=== PATIENT | female | born 1950 | race Caucasian/White ===

== ENCOUNTER → 2016-05-15 | Outpatient (CLI) | payer OTHER ==
[2016-05-15 12:39] LABS: CH 28.6; CHCM 32.5; HCT 42.5 % (34.0-46.0); HDW 2.33; HGB 13.6 gm/dL (11.4-16.0); MCH 28.3 pg (25.0-35.0); MCHC 32.1 g/dL (31.0-37.0); MCV 88.3 fL (80.0-100.0); Mean Platelet Volume 7.2; RBC 4.81 m/uL (3.80-5.40); RDW 14.1 % (11.5-15.5); WBC 11.3 k/uL (3.8-10.6)
[2016-05-15 13:00] LABS: Anion Gap 12 mmol/L; Carbon Dioxide 25 mmol/L (22-30); Chloride 99 mmol/L (98-107); Potassium 4.3 mmol/L (3.5-5.1); Sodium 136 mmol/L (137-145)
[2016-05-15 13:01] LABS: Blood Urea Nitrogen 14 mg/dL (7-17); Non-African American GFR(MDRD) >60 (>60 ml/min/1.73 sqM)
== END | disposition home or self-care (01) ==
LOC: LABPAT 12:23
PROVIDERS: ATTEND Internal Medicine Interventional Cardiology
DX: Z01.812 Encounter for preprocedural laboratory examination (principal); I10 Essential (primary) hypertension; R06.02 Shortness of breath
CPT/HCPCS: 80051; 82565; 84520; 85027

== ENCOUNTER 2016-05-25 07:54 | Day surgery (SDC) | payer OTHER ==
[2016-05-24 09:50] VITALS: BMI 39.2
[~2016-05-25 07:54] MED LIST: ALPRAZolam 0.25 MG TAB PO PRN; ALPRAZolam 0.5 MG TAB PO PRN; ASPIRIN 325 MG TAB PO STA; ATORVASTATIN 80 MG TAB PO STA; NITROGLYCERIN SL TABS 0.4 MG TAB SUBLINGUAL PRN; SODIUM CHLORIDE 0.9% 1,000 ML in EMPTY BAG 1 BAG IV ONE
[2016-05-25 08:12] VITALS: TEMP 98
[2016-05-25 08:24] LABS: Glucose,Whole Blood 170 mg/dL (75-99)
[2016-05-25] MEDS ORDERED: SODIUM CHLORIDE 0.9% (PF) 10 ML VIAL ONE (08:29)
[2016-05-25] MEDS ORDERED: VERAPAMIL 2.5 MG/ML 2 ML AMP ONE (08:29)
[2016-05-25] MEDS ORDERED: MIDAZOLAM 2 MG/2 ML VIAL ONE (08:29)
[2016-05-25] MEDS ORDERED: LIDOCAINE 2% INJ 20 MG/ML (20 ML MDV) ONE (08:29)
[2016-05-25] MEDS ORDERED: HEPARIN SODIUM 1,000 UNIT/ML VIAL ONE (08:29)
[2016-05-25] MEDS ORDERED: diphenhydrAMINE 50 MG/ML 1 ML VIAL ONE (08:41)
[2016-05-25] MEDS ORDERED: diphenhydrAMINE 50 MG/ML 1 ML VIAL IVP ONE (08:52)
[2016-05-25] MEDS ORDERED: MIDAZOLAM 2 MG/2 ML VIAL IVP ONE (08:52)
[2016-05-25] MEDS ORDERED: LIDOCAINE 2% INJ 20 MG/ML SQ ONE ×2 (08:54)
[2016-05-25] MEDS ORDERED: HEPARIN SODIUM 1,000 UNIT/ML VIAL IV ONE (08:57)
[2016-05-25] MEDS: VERAPAMIL SYRINGE (5 MG/10 ML) INTRAARTER ONE ×2 (08:58→09:07)
[2016-05-25] MEDS ORDERED: IOHEXOL 300 MG/ML 100 ML BOTTLE IV ONE (09:08)
[2016-05-25] MEDS ORDERED: RX INFO: IV CONTRAST WAS GIVEN 1 EACH MISC MISCELLANE PRN (09:17)
[2016-05-25] MEDS ORDERED: SODIUM CHLORIDE 0.9% 1,000 ML IV SCH (09:30)
--- NOTE | 2016-05-25 10:08 | CC ---
DATE OF SERVICE: 05/25/2016 PERFORMING PHYSICIAN: Demian Edge MD, furnace filler. PROCEDURE PERFORMED: 1. Selective right and left coronary angiogram. 2. Left heart catheterization. INDICATION: This is a pleasant 65-year-old female patient who was experiencing chest discomfort and underwent myocardial perfusion imaging stress test which showed anterior ischemia. She was brought today to undergo a heart catheterization to rule out any severe underlying coronary artery disease. Please note that the patient has diabetes, hypertension, dyslipidemia and she is also obese. APPROACH: Right radial artery. COMPLICATIONS: None. LEVEL OF SEDATION: Moderate with a length of sedation of 30 minutes. PROCEDURE DESCRIPTION: After obtaining an informed consent, the patient was brought to the cardiac boat laborer. Right radial artery was cannulated using micropuncture technique. The micropuncture wire passed easily, then I placed 6-[place] sheath in the right radial artery. Subsequently, I gave the patient 2 mg of verapamil IA and 3000 units of heparin IV. Subsequently, I did selective right and left coronary angiogram using JR4 and JL3.5 catheters. Then I did left heart catheterization using 5-[place] pigtail catheter. The procedure was completed without any complication. SELECTIVE CORONARY ANGIOGRAM: 1. The right coronary artery is a large-caliber vessel and it is a dominant vessel. The proximal RCA is angiographically normal. The mid RCA is angiographically normal as well. The RCA distally is angiographically normal and bifurcates into PDA and PLV branches; both are angiographically normal. 2. The left main is angiographically normal and bifurcates into the left circumflex and left anterior descending artery. 3. Left circumflex is a large-caliber vessel and it is a nondominant vessel. The proximal left circumflex is angiographically normal. The mid left circumflex is normal and gives rises into a large first obtuse marginal branch, which appeared to be angiographically normal then the rest of the left circumflex continues as a small-caliber vessel in the AV groove. 4. Left anterior descending artery. The proximal LAD is angiographically normally. The mid LAD is normal and gives rises into a large diagonal branch, which works as ( ) almost dual LAD system. The mid LAD after the diagonal and the distal LAD are angiographically normal. HEMODYNAMICS: The left ventricular end-diastolic pressure was 22 mmHg and no gradient was identified across the aortic valve. CONCLUSION: 1. Normal coronary angiogram. 2. Dominant right coronary system. 3. Dual left anterior descending artery system. 4. Elevated left ventricular end-diastolic pressure. POSTPROCEDURE MANAGEMENT: 1. Medical treatment. 2. Follow up with the patient.
[2016-05-25 10:10] VITALS: RESP 16
--- NOTE | 2016-05-25 10:10 | LTR ---
May 25, 2016 JOHAN DOYLE MD RE: Maryana Corey Dear Pat: Ms. Maryana Corey underwent a heart catheterization which showed normal coronary angiogram. Thank you for allowing me to participate in her care and please do not hesitate to call if you have any questions or concerns. Sincerely, GRETTA AUSTIN MD
[2016-05-25 12:04] VITALS: BP 137/61; PULSE 78
== END 2016-05-25 14:20 | disposition home or self-care (01) ==
LOC: CATHCVL 07:54
PROVIDERS: ATTEND Internal Medicine Interventional Cardiology
DX: R94.39 Abnormal result of other cardiovascular function study (principal); I20.0 Unstable angina; I73.9 Peripheral vascular disease, unspecified; I10 Essential (primary) hypertension; E78.5 Hyperlipidemia, unspecified; E66.9 Obesity, unspecified; Z68.39 Body mass index [BMI] 39.0-39.9, adult; E11.9 Type 2 diabetes mellitus without complications; Z79.84 Long term (current) use of oral hypoglycemic drugs; Z79.1 Long term (current) use of non-steroidal anti-inflammatories (NSAID); Z79.82 Long term (current) use of aspirin; Z79.4 Long term (current) use of insulin; Z79.891 Long term (current) use of opiate analgesic; Z79.899 Other long term (current) drug therapy; Z82.49 Family history of ischemic heart disease and other diseases of the circulatory system
CPT/HCPCS: 93458; 99152; C1769; C1894; J2001; J2250; J1200; J1644; Q9967

== ENCOUNTER → 2017-04-09 | Outpatient (CLI) | payer MEDICARE ==
--- NOTE | 2017-04-09 15:59 | US ---
EXAMINATION TYPE: US thyroid st tissue head/neck DATE OF EXAM: 04/09/2017 COMPARISON: NONE CLINICAL HISTORY: E03.9 Hypothyroidism, unspecified. GLAND SIZE: Right Lobe: 4.4 x 1.5 x 1.6 cm Overall Parenchyma: heterogenous Left Lobe: 3.7 x 1.3 x 1.4 cm Overall Parenchyma: heterogeneous Isthmus Thickness: 0.3 cm NODULES RIGHT: # of nodules measured on right: 2 1. 0.5 X 0.5 x 0.5 cm anechoic cystic nodule at the mid pole with well-defined margins. This nodul e is as wide as it is tall and shows no intranodular vascularity. No prior 2. 0.7 X 0.4 x 0.5 cm hypoechoic solid nodule at the mid pole with well-defined margins. This nodule is wider than tall and shows no intranodular vascularity. No prior LEFT: # of nodules measured on left: 0 ISTHMUS: # of nodules measured in the isthmus: 0 Bilateral neck scanned, no evidence of lymphadenopathy. IMPRESSION: Nonspecific thyroid heterogeneity and nodularity.
== END | disposition home or self-care (01) ==
LOC: RADUSWWP 15:31
PROVIDERS: ATTEND Family Medicine
DX: E04.1 Nontoxic single thyroid nodule (principal)
CPT/HCPCS: 76536

== ENCOUNTER 2018-07-08 06:02 | Day surgery (SDC) | payer MEDICARE ==
[2018-07-02 13:19] VITALS: BMI 36.0
[~2018-07-08 06:02] MED LIST changes: -ALPRAZolam 0.25 MG TAB PO PRN; -ALPRAZolam 0.5 MG TAB PO PRN; -ASPIRIN 325 MG TAB PO STA; -ATORVASTATIN 80 MG TAB PO STA; +LACTATED RINGERS 1,000 ML IV SCH; +MORPHINE SULFATE 2 MG/ML SYRINGE IV PRN; -NITROGLYCERIN SL TABS 0.4 MG TAB SUBLINGUAL PRN; -SODIUM CHLORIDE 0.9% 1,000 ML in EMPTY BAG 1 BAG IV ONE; +TOBRA-DEXAMET 0.3-0.1% OPHTH OINT 3.5 GM TUBE OPHTHALMIC NR
[2018-07-08] MEDS: PHENYLEPHRINE 10% OPHTH DROPS 5 ML BTL OP ONE ×3 (06:22→06:43)
[2018-07-08 06:25] VITALS: TEMP 96.6
[2018-07-08] MEDS: CYCLOPENTOLATE 1% OPHTH SOLN 2 ML BTL OP ONE ×3 (06:25→06:46)
[2018-07-08] MEDS: KETOROLAC 0.5% OPHTH DROPS 5 ML BTL OP ONE ×3 (06:29→06:50)
[2018-07-08 06:47] LABS: Glucose,Whole Blood 120 mg/dL (75-99)
[2018-07-08] MEDS ORDERED: LIDOCAINE 1% 20 ML VIAL (10MG/ML) FOR IV START INTRADERMA ONE (06:48)
[2018-07-08] MEDS ORDERED: MIDAZOLAM 2 MG/2 ML VIAL ONE (07:35)
[2018-07-08] MEDS ORDERED: PROPOFOL 10 MG/ML 20 ML VIAL IV ONE (07:35)
[2018-07-08] MEDS ORDERED: BALANCED SALT IRRIG SOLN COMB2 15 ML IRRIG.SOLN IRRIGATION ONE (07:51)
[2018-07-08] MEDS ORDERED: EPINEPHrine (PF) 0.5 ML in BALANCED SALT IRRIG SOLN COMB2 500 ML IRRIGATION ONE (07:51)
[2018-07-08] MEDS ORDERED: HYALURONATE SODIUM INTRAOCULAR 1 EACH SYRINGE (10MG/ML) INTRAOCULA ONE (07:56)
[2018-07-08 08:10] VITALS: RESP 18
[2018-07-08 08:14] LABS: Glucose,Whole Blood 133 mg/dL (75-99)
[2018-07-08 08:20] VITALS: PULSE 68
[2018-07-08 08:31] VITALS: BP 109/55
--- NOTE | 2018-07-08 09:22 | P.OP ---
Date of Procedure: 07/08/18 Procedure(s) Performed: PREOPERATIVE DIAGNOSIS: Cataract, left eye. POSTOPERATIVE DIAGNOSIS: Cataract, left eye. OPERATION: Phacoemulsification of cataract, intraocular lens placement, left eye. DESCRIPTION OF PROCEDURE: The patient was taken to the operating room. Intravenous Propofol was given so as to bring about sedation. The following mixture was given for local anesthesia: 5 mL of 2% lidocaine, 5 mL of 0.75% Marcaine, and 1 mL of Wydase. Approximately 4 mL was injected in the retrobulbar space of the surgical eye. Additional 1 mL was then directed to the temporal area of the surgical eye. This was performed to allow adequate neurological block of the facial muscles. The patient was revived. The patient was prepped and draped in the usual sterile manner for the operative eye. A lid speculum was put into position. The conjunctiva was resected back from the limbus in the 12 o'clock position. Bleeding was controlled with electrocautery. A #69 blade was then used and a half-thickness scleral incision approximately 1-mm posterior to the limbus was made on bare sclera. This was shelved in the clear cornea using a crescent knife. Next a 15-degree blade was used to make a stab incision at the 3 o'clock position at the corneolimbal interface. A keratome blade was then used and the superior wound was extended into the anterior chamber. Viscoelastic was injected into the anterior chamber to maintain its form. A cystotome was used and a continuous anterior capsulot mario was made. Hydrodissection of the lens cortex using a blunt cannula and BSS was performed. A phaco probe was then introduced and a groove extending from 12 to 6 o'clock in the lens was created. A Jaiden wand was used through the stab incision and used to perform a divide and conquer dismantling of the cataract. An irrigation aspiration probe was utilized and any residual cortex was removed from the eye. Again, viscoelastic was injected into the anterior chamber. An Aly posterior chamber lens implant was placed in a delivery cartridge and injected into the anterior chamber. A Sinskey hook was utilized to spin the lens into position within the capsular bag. The irrigation and aspiration probe was again introduced and any residual viscoelastic was removed from the eye. BSS was injected via blunt canula into the limbal stab incision and the anterior chamber was re-inflated. The conjunctiva was reapproximated using electrocautery. One drop of 0.25% Timoptic was placed over the corneal along with an antibiotic ophthalmic ointment. Two sterile patches and a Duncan eye shield were taped into position. The patient was transported to the recovery room in stable condition. Pathology: none sent Condition: stable Disposition: same day
[2018-07-08] MEDS ORDERED: TIMOLOL 0.5% OPHTH DROPS 5 ML BTL OP ONE (23:00)
[2018-07-08] MEDS ORDERED: BUPIVACAINE (PF) 0.75% 5 ML, HYALURONIDASE, HUMAN RECOMB 150 UNIT, LIDOCAINE 2% (PF) 10... MISCELLANE ONE ×3 (23:00)
== END 2018-07-08 08:48 | disposition home or self-care (01) ==
LOC: OR 06:02
PROVIDERS: ATTEND Ophthalmology
DX: E11.36 Type 2 diabetes mellitus with diabetic cataract (principal); I10 Essential (primary) hypertension; H40.059 Ocular hypertension, unspecified eye; K21.9 Gastro-esophageal reflux disease without esophagitis; J45.909 Unspecified asthma, uncomplicated; E07.9 Disorder of thyroid, unspecified; Z79.84 Long term (current) use of oral hypoglycemic drugs; Z79.890 Hormone replacement therapy; Z79.891 Long term (current) use of opiate analgesic; Z79.899 Other long term (current) drug therapy
CPT/HCPCS: 66984; V2632; J2250; J3470; J2001; J0171; J2704

== ENCOUNTER 2018-08-12 07:00 | Day surgery (SDC) | payer MEDICARE ==
[2018-08-07 11:11] VITALS: BMI 37.3
[2018-08-12] MEDS: CYCLOPENTOLATE 1% OPHTH SOLN 2 ML BTL OP ONE ×2 (06:46→07:05)
[2018-08-12] MEDS: KETOROLAC 0.5% OPHTH DROPS 5 ML BTL OP ONE ×3 (06:49→07:08)
[2018-08-12 06:52] VITALS: RESP 16; TEMP 97.2
[2018-08-12] MEDS: PHENYLEPHRINE 10% OPHTH DROPS 5 ML BTL OP ONE ×3 (06:52→07:11)
[~2018-08-12 07:00] MED LIST changes: +BUPIVACAINE (PF) 0.75% 5 ML, HYALURONIDASE, HUMAN RECOMB 150 UNIT, LIDOCAINE 2% (PF) 10... MISCELLANE ONE; +LIDOCAINE 1% 20 ML VIAL (10MG/ML) FOR IV START INTRADERMA PRN; -MORPHINE SULFATE 2 MG/ML SYRINGE IV PRN; -TOBRA-DEXAMET 0.3-0.1% OPHTH OINT 3.5 GM TUBE OPHTHALMIC NR; +TOBRA-DEXAMET 0.3-0.1% OPHTH OINT 3.5 GM TUBE OPHTHALMIC ONE
[2018-08-12] MEDS ORDERED: PROPOFOL 10 MG/ML 20 ML VIAL IV ONE (07:30)
[2018-08-12] MEDS ORDERED: BALANCED SALT IRRIG SOLN COMB2 15 ML IRRIG.SOLN INTRAOCULA ONE (07:33)
[2018-08-12] MEDS ORDERED: HYALURONATE SODIUM INTRAOCULAR 1 EACH SYRINGE (10MG/ML) INTRAOCULA ONE (07:34)
[2018-08-12] MEDS ORDERED: EPINEPHrine (PF) 1 MG/ML AMP MISCELLANE ONE (07:34)
[2018-08-12] MEDS ORDERED: EPINEPHrine (PF) 0.5 ML in BALANCED SALT IRRIG SOLN COMB2 500 ML IRRIGATION ONE (07:53)
[2018-08-12 08:28] VITALS: BP 121/75; PULSE 68
--- NOTE | 2018-08-12 08:41 | P.OP ---
Date of Procedure: 08/12/18 Procedure(s) Performed: PREOPERATIVE DIAGNOSIS: Cataract, right eye. POSTOPERATIVE DIAGNOSIS: Cataract, right eye. OPERATION: Phacoemulsification of cataract, intraocular lens placement, right eye. DESCRIPTION OF PROCEDURE: The patient was taken to the operating room. Intravenous Propofol was given so as to bring about sedation. The following mixture was given for local anesthesia: 5 mL of 2% lidocaine, 5 mL of 0.75% Marcaine, and 1 mL of Wydase. Approximately 4 mL was injected in the retrobu lbar space of the surgical eye. Additional 1 mL was then directed to the temporal area of the surgical eye. This was performed to allow adequate neurological block of the facial muscles. The patient was revived. The patient was prepped and draped in the usual sterile manner for the operative eye. A lid speculum was put into position. The conjunctiva was resected back from the limbus in the 12 o'clock position. Bleeding was controlled with electrocautery. A #69 blade was then used and a half-thickness scleral incision approximately 1-mm posterior to the limbus was made on bare sclera. This was shelved in the clear cornea using a crescent knife. Next a 15-degree blade was used to make a stab incision at the 3 o'clock position at the corneolimbal interface. A keratome blade was then used and the superior wound was extended into the anterior chamber. Viscoelastic was injected into the anterior chamber to maintain its form. A cystotome was used and a continuous anterior capsu lotomy was made. Hydrodissection of the lens cortex using a blunt cannula and BSS was performed. A phaco probe was then introduced and a groove extending from 12 to 6 o'clock in the lens was created. A Jaiden wand was used through the stab incision and used to perform a divide and conquer dismantling of the cataract. An irrigation aspiration probe was utilized and any residual cortex was removed from the eye. Again, viscoelastic was injected into the anterior chamber. An Aly posterior chamber lens implant was placed in a delivery cartridge and injected into the anterior chamber. A Sinskey hook was utilized to spin the lens into position within the capsular bag. The irrigation and aspiration probe was again introduced and any residual viscoelastic was removed from the eye. BSS was injected via blunt canula into the limbal stab incision and the anterior chamber was re-inflated. The conjunctiva was reapproximated using electrocautery. One drop of 0.25% Timoptic was placed over the corneal along with an antibiotic ophthalmic ointment. Two sterile patches and a Duncan eye shield were taped into position. The patient was transported to the recovery room in stable condition. Pathology: none sent Condition: stable Disposition: same day
[2018-08-12] MEDS ORDERED: GENTAMICIN/PREDNISOL AC OPHTH OINT 3.5GM OPHTHALMIC ONE (23:00)
[2018-08-12] MEDS ORDERED: TIMOLOL 0.5% OPHTH DROPS 5 ML BTL OP ONE (23:00)
[2018-08-13 09:41] LABS: Glucose,Whole Blood 120 mg/dL (75-99)
== END 2018-08-12 08:54 | disposition home or self-care (01) ==
LOC: OR 07:00
PROVIDERS: ATTEND Ophthalmology
DX: H25.13 Age-related nuclear cataract, bilateral (principal); E11.36 Type 2 diabetes mellitus with diabetic cataract; J45.909 Unspecified asthma, uncomplicated; K21.9 Gastro-esophageal reflux disease without esophagitis; H40.059 Ocular hypertension, unspecified eye; I10 Essential (primary) hypertension; E07.9 Disorder of thyroid, unspecified; Z79.84 Long term (current) use of oral hypoglycemic drugs; Z79.82 Long term (current) use of aspirin; Z79.890 Hormone replacement therapy; Z79.899 Other long term (current) drug therapy; Z79.891 Long term (current) use of opiate analgesic; Z88.2 Allergy status to sulfonamides
CPT/HCPCS: 66984; V2632; J3470; J2001; J0171; J2704

== ENCOUNTER → 2020-01-01 | Outpatient (CLI) | payer MEDICARE | END | disposition home or self-care (01) | LOC: LABPAT 14:18 | PROVIDERS: ATTEND Orthopaedic Surgery | DX: Z01.818 Encounter for other preprocedural examination (principal); M17.12 Unilateral primary osteoarthritis, left knee | CPT/HCPCS: 87070 ==

== ENCOUNTER 2020-01-25 10:37 | Inpatient (IN) | payer MEDICARE ==
[2020-01-22 11:11] VITALS: BMI 36.1
--- NOTE | 2020-01-24 10:55 | HP ---
HISTORY AND PHYSICAL REASON FOR ADMISSION: Surgery 01/25/2020 HISTORY OF PRESENT ILLNESS: Maryana Corey is a 69-year-old patient seen with progressive left knee pain. Options for treatment were discussed with her. She elected to proceed with total knee arthroplasty. Consent regarding the procedure was obtained. Medical clearance was provided by Dr. Cuba. PAST MEDICAL HISTORY: Hypertension, hyperlipidemia, hypothyroidism, hyo-hfubhyb-znviaxlmh diabetes. PAST SURGICAL HISTORY: Cataract surgery, hysterectomy. DAILY MEDICATIONS: Actos, aspirin, atorvastatin, enalapril, ibuprofen, levothyroxine, metformin, Fanshawe, Trulicity. ALLERGIES: SULFA. SOCIAL HISTORY: She denies tobacco use. PHYSICAL EXAMINATION: Evaluation of the left knee: Range of motion -2/3-120. Mild effusion. Tenderness medial joint line. Crepitus medial and patellofemoral compartment with range of motion. Pain with patellofemoral compression. Ligaments stable. Hip rotation without pain. Distal neurovascular exam intact left knee. RADIOGRAPHS: Left knee radiographs reveal severe osteoarthritic changes. IMPRESSION: 1. Left knee osteoarthritis. 2. Hypertension. 3. Hyperlipidemia. 4. Hypothyroidism. 5. Iao-cxmazib-ycrhujezd diabetes. PLAN: Left total knee arthroplasty. Surgery 01/24/2026 MMODL / IJN: [id number] /
[~2020-01-25 10:37] MED LIST changes: +ACETAMINOPHEN TAB 500 MG TAB PO ONE; -BUPIVACAINE (PF) 0.75% 5 ML, HYALURONIDASE, HUMAN RECOMB 150 UNIT, LIDOCAINE 2% (PF) 10... MISCELLANE ONE; +CLINDAMYCIN 900 MG in DEXTROSE 5% IN WATER 50 ML IVPB ONE; +HYDROmorphone 0.5 MG/0.5 ML SYRINGE IVP PRN; -LACTATED RINGERS 1,000 ML IV SCH; +LIDOCAINE 1% (10MG/ML) FOR IV START INTRADERMA PRN; -LIDOCAINE 1% 20 ML VIAL (10MG/ML) FOR IV START INTRADERMA PRN; +MELOXICAM 7.5 MG TAB PO ONE; +ONDANSETRON 4 MG/2 ML VIAL IVP ONE; -TOBRA-DEXAMET 0.3-0.1% OPHTH OINT 3.5 GM TUBE OPHTHALMIC ONE; +TRANEXAMIC ACID 1,000 MG in SODIUM CHLORIDE 0.9% 100 ML IVPB ONE
[2020-01-25 11:23] LABS: Glucose,Whole Blood 127 mg/dL (75-99)
[2020-01-25] MEDS: LACTATED RINGERS 1,000 ML IV SCH ×3 (11:38→21:32)
[2020-01-25] MEDS ORDERED: MIDAZOLAM 2 MG/2 ML VIAL IV ONE (11:59)
[2020-01-25] MEDS ORDERED: DEXAMETHASONE SOD PHOSPHATE 4 MG/ML 1 ML VIAL IV ONE (12:26)
[2020-01-25] MEDS ORDERED: diphenhydrAMINE 50 MG/ML 1 ML VIAL ONE ×2 (12:41)
[2020-01-25] MEDS ORDERED: PHENYLEPHRINE-0.9% NACL SYG 1 MG/10 ML SYRINGE ONE ×2 (12:41)
[2020-01-25] MEDS ORDERED: MIDAZOLAM 2 MG/2 ML VIAL ONE ×2 (12:41)
[2020-01-25] MEDS ORDERED: SODIUM CHLORIDE 0.9% 100 ML BAG ONE ×2 (12:41)
[2020-01-25] MEDS ORDERED: TRANEXAMIC ACID 1,000 MG/10 ML VIAL ONE ×2 (12:41)
[2020-01-25] MEDS ORDERED: PROPOFOL 10 MG/ML 20 ML VIAL IV ONE ×2 (12:41)
[2020-01-25] MEDS: ROPIVACAINE 246.25 MG, EPINEPHrine 0.5 MG, KETOROLAC 30 MG, cloNIDine HCL/PF 80 MCG, WA... MISCELLANE ONE ×10 (13:33→13:56)
[2020-01-25] MEDS ORDERED: CLINDAMYCIN 600 MG in SODIUM CHLORIDE 0.9% 1,000 ML IRRIGATION ONE (13:33)
[2020-01-25] MEDS ORDERED: ROPIVACAINE 0.2%-NS ON-Q PUMP 1,090 MG, EMPTY PAIN BALL 1 EACH MISCELLANE PRN (14:00)
--- NOTE | 2020-01-25 14:02 | P.ANPRN ---
Procedure Note - Anesthesia - Nerve Block Performed Left Adductor Canal Infusion Time Out Performed: Yes Date of Procedure: 01/25/20 Procedure Start Time: 11:58 Procedure Stop Time: 12:22 Location of Patient: PreOp Indication: Acute Post-Operative Pain, Requested by Surgeon Sedation Type: Sedate with meaningful contact maintained Preparation: Sterile Prep, Sterile Dressing Position: Supine Catheter: Indwelling Needle Types: Pajunk Needle Gauge: 21 Ultrasound used to visualize needle placement: Yes Ultrasound used to observe medication spread: Yes Blood Aspirated: No Pain Paresthesia on Injection Noted: No Resistance on Injection: Normal Image Stored and Saved: Yes Events: Uneventful and Well Tolerated (ropi .5% 20cc plus dexamethasone 4mg)
[2020-01-25] MEDS ORDERED: HYDROmorphone 0.5 MG/0.5 ML SYRINGE IVP PRN ×3 (14:35)
[2020-01-25] MEDS ORDERED: NALOXONE 0.4 MG/ML 1 ML VIAL IV PRN (14:35)
[2020-01-25] MEDS ORDERED: ONDANSETRON 4 MG/2 ML VIAL IVP PRN (14:35)
[2020-01-25] MEDS ORDERED: HYDROcodone/APAP 5-325MG 1 EACH TAB PO PRN (14:35)
--- NOTE | 2020-01-25 14:35 | P.OP ---
Date of Procedure: 01/25/20 Preoperative Diagnosis: Left knee osteoarthritis Postoperative Diagnosis: Left knee osteoarthritis Procedure(s) Performed: Left total knee arthroplasty Implants: 1. Depuy attune size 5 left narrow cruciate retaining cemented femur 2. Depuy attune size 5 fixed bearing cemented tibial baseplate 3. Depuy attune size 5 cruciate retaining fixed bearing 7 mm polythene tibial insert 4. Depuy attune 38 mm all polyethylene cemented patella Anesthesia: regional (Interscalene block), local, spinal Surgeon: Ranjit Steel Manager Human Capital #1: Hector Singletary Estimated Blood Loss (ml): 50 Pathology: other (Bone) Condition: stable Disposition: PACU Indications for Procedure: 69-year-old patient seen with symptomatic left knee osteoarthritis. After treatment options were discussed, she elected to proceed with total knee arthroplasty. Operative Findings: See description of procedure Description of Procedure: Patient was taken to the operative suite after having an adductor canal catheter placed by the department of anesthesia. Patient underwent a spinal anesthetic by the department of anesthesia. Patient was given preoperative IV intake antibiotics and TXA. A well-padded tourniquet was placed about the left lower extremity. The lower extremity was then prepped and draped in the normal sterile orthopedic fashion. The extremity was elevated, a tourniquet was insuf flated to 300. A standard anterior incision was made sharply through skin. Dissection was taken down through the subcutaneous soft tissues down to the extensor mechanism. A medial arthrotomy was performed, patella was everted and knee was flexed. There was advanced osteoarthritis noted. I introduced my distal intramedullary femoral drill. I then introduced the distal femoral cutting jig. Emmanuel DALTON secured the cutting jig with 2 pins. I held retractors in position while Emmanuel DALTON performed the distal femoral resection through the guide area we now removed her distal femoral cutting guide. We now placed our 4-in-1 femoral cutting block and positioned and it was secured with 2 pins by Emmanuel DALTON while I held the block in position. The distal femoral finishing was now completed. A proximal tibial cutting guide was positioned. I held the guide in the appropriate position with both hands well Emmanuel DALTON inserted stabilizing pins into the guide. Proximal tibial cut was made. We now placed a trial femoral component into position, along with an appropriate size tibial tray and insert. We now took the knee through range of motion and had full extension good flexion and good overall soft tissue balance noted. The patella was everted and stabilized with 2 towel clips held by Emmanuel DALTON while I performed a flush with patellar quad tendon utilizing a fresh sawblade. We templated the patella, appropriate drill holes were made. An appropriate trial patella was positioned, knee was taken through full range of motion with the patella tracking very nicely. The trial patella was removed. Drill holes were made through the femoral component. All trial components were removed after marking off the appropriate rotation of the tibia. Retractors were now positioned along the proximal tibia. An appropriate keel punch was made with the appropriate size tibial guide by myself on Emmanuel DALTON assisted by holding retractors. At this point appropriate size implants were chosen and opened. The joint was irrigated copiously with pulse lavage mechanical irrigation. The posterior capsule was infiltrated with local analgesic. The wound was irrigated with pulse lavage mechanical irrigation. We mixed antibiotic methylmethacrylate. We placed the knee into flexion. We placed multiple retractors assisted by Emmanuel DALTON to expose the proximal tibia. Once the methyl methacrylate was ready, the tibial component was cemented into place removing any excess methylmethacrylate form by both myself and Emmanuel DALTON. The femoral component was cemented into place removing the removing any excess methylmethacrylate performed by both myself and Emmanuel DALTON. We then inserted the appropriate size polyethylene tibial insert. We made sure that it was locked into position. We took the knee into full extension, and then back in a flexion making sure we had removed any excess methylmethacrylate. The patellar component was then cemented down and secured with clamp. Excess methylmethacrylate removed. We kept the knee in full extension, patellar clamp in position until methylmethacrylate had hardened. Once it had hardened the patellar clamp was removed. The knee was taken through full range of motion. The patella tracked nicely. There was good soft tissue balancing. The tourniquet was now released. Additional hemostasis was achieved via electrocautery. A second gram of TXA was given. The wound again was irrigated with pulse lavage mechanical irrigation. The superficial soft tissues were infiltrated local analgesic. The extensor mechanism was repaired with Vicryl. We checked the repair with range of motion and it was stable. The subcutaneous soft tissues were repaired with Vicryl in layers. The skin was approximated with pernio/Dermabond. Sterile dressings were applied followed by loose web roll and Torsten bandage. The patient was transferred to a bed, and taken to recovery in stable and satisfactory condition. Emmanuel DALTON assisted with this complex procedure.
[2020-01-25 15:08] LABS: Glucose,Whole Blood 153 mg/dL (75-99)
--- NOTE | 2020-01-25 15:10 | XR ---
EXAMINATION TYPE: XR knee limited LT DATE OF EXAM: 01/25/2020 CLINICAL HISTORY: Left knee pain and arthritis status post total knee replacement. TECHNIQUE: Portable AP and crosstable lateral views of the left knee are obtained immediately postop eratively. COMPARISON: Outside left knee x-ray December 16, 2019 FINDINGS: Metallic hardware from total left knee arthroplasty is seen and appears satisfactory in al ignment and position. [place]q osseous structures are demineralized. Improved alignment of the lateral step off after surgery noted. There is evidence of recent surgery with diffuse subcutaneous gas and s oft tissue swelling noted. IMPRESSION: METALLIC HARDWARE FROM TOTAL LEFT KNEE ARTHROPLASTY IS SATISFACTORY IN ALIGNMENT.
[2020-01-25 18:10] LABS: Glucose,Whole Blood 173 mg/dL (75-99)
[2020-01-25] MEDS: HYDROcodone/APAP 5-325MG 1 EACH TAB PO PRN (21:30)
[2020-01-25] MEDS: CLINDAMYCIN 900 MG in DEXTROSE 5% IN WATER 50 ML IVPB SCH ×2 (21:31)
[2020-01-25] MEDS: SENNOSIDES-DOCUSATE SODIUM 1 EACH TAB PO SCH (21:31)
[2020-01-26] MEDS: CLINDAMYCIN 900 MG in DEXTROSE 5% IN WATER 50 ML IVPB SCH ×2 (01:00)
[2020-01-26] MEDS: HYDROcodone/APAP 5-325MG 1 EACH TAB PO PRN ×3 (05:24→16:58)
[2020-01-26] MEDS: ENOXAPARIN 30 MG/0.3 ML SYRINGE SQ SCH ×2 (05:37→16:58)
[2020-01-26] MEDS: LACTATED RINGERS 1,000 ML IV SCH ×3 (06:26→23:06)
[2020-01-26 06:52] LABS: Basophils % (A) 0 %; Eosinophils % (A) 0 %; HCT 36.9 % (34.0-46.0); HGB 11.6 gm/dL (11.4-16.0); Lymphocytes # (A) 1.6 k/uL (1.0-4.8); Lymphocytes % (A) 10 %; MCHC 31.6 g/dL (31.0-37.0); MCV 88.6 fL (80.0-100.0); Monocytes % (A) 7 %; Neutrophils # (A) 12.8 k/uL (1.3-7.7); Neutrophils % (A) 82 %; Platelet Count 412 k/uL (150-450); RBC 4.16 m/uL (3.80-5.40); WBC 15.6 k/uL (3.8-10.6)
--- NOTE | 2020-01-26 07:27 | P.PN ---
Progress Note - Text 01/26/20 653am 69-year-old female status post total knee replacement by Dr. Steel. Patient has an On-Q pump for postop pain control control with the solution running at 8 mL an hour. Patient has a VAS of 1. Plan to continue On-Q pump infusion
[2020-01-26] MEDS ORDERED: diphenhydrAMINE 25 MG CAP PO PRN (08:10)
[2020-01-26] MEDS ORDERED: ALBUTEROL HFA INHALER INHALATION PRN (08:10)
--- NOTE | 2020-01-26 08:36 | P.CONS ---
History of Present Illness - Reason for Consult Consult date: 01/26/20 Medical management for diabetes and hypertension - Chief Complaint Medical management - History of Present Illness The patient is postop day #1 for right total knee arthroplasty. The patient is stable. Pain is well controlled. Nausea, vomiting or diarrhea. No fever or chills stated. Chest pain or shortness of breath Review of Systems Eyes: denies blurred vision, denies pain Ears, nose, mouth and throat: Denies headache, Denies sore throat Cardiovascular: Denies chest pain, Denies shortness of breath Respiratory: Denies cough Gastrointestinal: Denies abdominal pain, Denies diarrhea, Denies nausea, Denies vomiting Past Medical History Past Medical History: Asthma, Cancer, Diabetes Mellitus, Deep Vein Thrombosis (DVT), GERD/Reflux, Hyperlipidemia, Hypertension, Osteoarthritis (OA), Thyroid Disorder Additional Past Medical History / Comment(s): hx cervical cancer, neuropathy omar legs, lt leg "blood clot", MIGRAINE HEADACHE History of Any Multi-Drug Resistant Organisms: None Reported Past Surgical History: Appendectomy, Cholecystectomy, Hysterectomy Additional Past Surgical History / Comment(s): cervical bx. COLONOSCOPY Past Anesthesia/Blood Transfusion Reactions: No Reported Reaction Smoking Status: Never smoker - Past Family History Mother Family Medical History: Cancer Brother(s) Family Medical History: Cancer, Coronary Artery Disease (CAD) Medications and Allergies Home Medications Medication Instructions Recorded Confirmed Type Albuterol Sulfate [Proair Hfa] 2 puff INHALATION DIRECTED PRN 05/24/16 01/25/20 History Aspirin [Adult Low Dose Aspirin EC] 81 mg PO DAILY 05/24/16 01/25/20 History Cholecalciferol [Vitamin D3 (25 1,000 unit PO DAILY 05/24/16 01/25/20 History Mcg = 1000 Iu)] Enalapril Maleate [Vasotec] 10 mg PO DAILY 05/24/16 01/25/20 History Gabapentin [Neurontin] 300 mg PO TID 05/24/16 01/25/20 History HYDROcodone/APAP 10-325MG [Amory 1 tab PO QID 05/24/16 01/25/20 History 10-325] Ibuprofen [Motrin] 800 mg PO BID 05/24/16 01/25/20 History Levothyroxine Sodium [Synthroid] 75 mcg PO DAILY 05/24/16 01/25/20 History Multivitamins, Thera [Multivitamin 1 tab PO DAILY 05/24/16 01/25/20 History (formulary)] Dapagliflozin Propanediol [Farxiga] 10 mg PO DAILY 07/02/18 01/25/20 History Dulaglutide [Trulicity] 1.5 mg SQ WE 07/02/18 01/25/20 History Fenofibrate Nanocrystallized 145 mg PO DAILY 07/02/18 01/25/20 History [Fenofibrate] Magnesium Citrate 250 mg PO HS 07/02/18 01/25/20 History Pioglitazone [Actos] 30 mg PO DAILY 07/02/18 01/25/20 History metFORMIN HCL 1,000 mg PO BID 07/02/18 01/25/20 History Atorvastatin [Lipitor] 20 mg PO HS 04/08/19 01/25/20 History Omeprazole 40 mg PO DAILY 01/22/20 01/25/20 History diphenhydrAMINE HCL [Benadryl] 25 mg PO DAILY PRN 01/22/20 01/25/20 History Allergies Allergy/AdvReac Type Severity Reaction Status Date / Time cephalexin [From Keflex] Allergy Itching Verified 01/25/20 11:08 Sulfa (Sulfonamide Allergy Itching Verified 01/25/20 11:08 Antibiotics) Physical Exam Vitals: Vital Signs Temp Pulse Resp BP Pulse Ox 01/26/20 07:20 97.7 F 69 20 107/50 92 L 01/26/20 00:49 97.5 F L 72 14 97/42 95 01/25/20 23:39 15 01/25/20 19:24 97.4 F L 94 15 126/75 93 L 01/25/20 18:30 88 16 117/74 99 01/25/20 18:00 77 16 122/74 99 01/25/20 17:09 73 16 109/53 97 01/25/20 16:32 72 16 107/55 97 01/25/20 16:00 73 16 114/56 95 01/25/20 15:45 71 16 103/55 100 01/25/20 15:30 72 16 98/53 100 01/25/20 15:15 71 16 109/55 98 01/25/20 15:00 72 16 100/54 98 01/25/20 14:46 99.4 F 82 16 101/50 98 01/25/20 12:28 72 18 143/58 98 01/25/20 11:08 97.1 F L 88 18 133/72 98 Intake and Output 01/25/20 01/26/20 01/26/20 22:59 06:59 14:59 Intake Total 500 1150 Balance 500 1150 Intake: Intake, IV Titration 200 850 Amount Clindamycin 900 mg In 50 Dextrose 5% in Water 50 ml @ 50 mls/hr IVPB Q6H ARBEN Rx#:[id number] Lactated Ringers 1,000 ml 200 800 @ 100 mls/hr IV .Q10H ARBEN Rx#:[id number] Oral 300 300 Other: Voiding Method Toilet # Voids 2 1 - Constitutional General appearance: no acute distress - EENT Eyes: EOMI - Neck Neck: no lymphadenopathy - Respiratory Respiratory: bilateral: diminished - Cardiovascular Rhythm: regular Heart sounds: normal: S1, S2 Abnormal Heart Sounds: no S3 Gallop - Gastrointestinal General gastrointestinal: soft, no tenderness - Integumentary Integumentary: normal - Neurologic Neurologic: CNII-XII intact Results CBC & Chem 7: 01/26/20 06:35 Labs: Abnormal Lab Results - Last 24 Hours (Table) 01/25/20 01/25/20 01/25/20 Range/Units 11:20 15:06 18:08 WBC (3.8-10.6) k/uL Neutrophils # (1.3-7.7) k/uL POC Glucose (mg/dL) 127 H 153 H 173 H (75-99) mg/dL 01/26/20 Range/Units 06:35 WBC 15.6 H (3.8-10.6) k/uL Neutrophils # 12.8 H (1.3-7.7) k/uL POC Glucose (mg/dL) (75-99) mg/dL Assessment and Plan (1) History of total knee arthroplasty Current Visit: Yes Status: Acute Code(s): Z96.659 - PRESENCE OF UNSPECIFIED ARTIFICIAL KNEE JOINT SNOMED Code(s): 2129634849215 (2) Hypertension Current Visit: Yes Status: Acute Code(s): I10 - ESSENTIAL (PRIMARY) HYPERTENSION SNOMED Code(s): 78144013 (3) Diabetes Current Visit: Yes Status: Acute Code(s): E11.9 - TYPE 2 DIABETES MELLITUS WITHOUT COMPLICATIONS SNOMED Code(s): 14987954 Plan: Reconcile home medications. Pain control postoperatively will be controlled by orthopedics. Placed on appropriate sliding scale. Check CBC and CMP in a.m.
[2020-01-26] MEDS: lisinopriL 20 MG TAB PO SCH ×2 (08:41→10:34)
[2020-01-26] MEDS: metFORMIN 500 MG TAB PO SCH ×2 (10:33→20:44)
[2020-01-26] MEDS: CHOLECALCIFEROL 1,000 UNIT TAB PO SCH (10:33)
[2020-01-26 10:34] LABS: Glucose,Whole Blood 188 mg/dL (75-99)
[2020-01-26] MEDS: MULTIVITAMINS, THERA 1 EACH TAB PO SCH (10:34)
[2020-01-26] MEDS: GABAPENTIN 300 MG CAP PO SCH ×3 (10:34→20:44)
[2020-01-26] MEDS: FENOFIBRATE 160 MG TAB PO SCH (10:35)
[2020-01-26] MEDS: PANTOPRAZOLE 40 MG TABLET PO SCH (11:02)
[2020-01-26] MEDS: LEVOTHYROXINE 75 MCG TAB PO SCH (11:02)
[2020-01-26 11:52] LABS: Glucose,Whole Blood 188 mg/dL (75-99)
--- NOTE | 2020-01-26 13:05 | P.PN ---
Subjective Progress Note Date: 01/26/20 Principal diagnosis: Status post left total knee arthroplasty Patient evaluated at bedside, she is resting in her hospital bed. She is having quite a bit of pain today, this is not unexpected she does take high-dose oral pain medication at home. She has ambulate with therapy. Currently denies any headaches, lightheadedness, chest pain, shortness of breath, nausea or vomiting. Objective - Vital Signs Vital signs: Vital Signs Temp 97.7 F 01/26/20 07:20 Pulse 69 01/26/20 07:20 Resp 20 01/26/20 07:20 BP 107/50 01/26/20 07:20 Pulse Ox 92 L 01/26/20 07:20 Intake & Output 01/25/20 01/26/20 01/26/20 18:59 06:59 18:59 Intake Total 757 1650 Output Total 50 Balance 707 1650 Weight 115.9 kg Intake: IV 757 Intake, IV Titration 1050 Amount Clindamycin 900 mg In 50 Dextrose 5% in Water 50 ml @ 50 mls/hr IVPB Q6H [facility] Rx#:[id number] Lactated Ringers 1,000 ml 1000 @ 100 mls/hr IV .Q10H [facility]BEN Rx#:[id number] Oral 600 Output: Estimated Blood Loss 50 Other: Voiding Method Toilet # Voids 1 - Exam Left lower extremity: Incision is clean, dry, and intact. The foam dressing is in good condition. There is minimal soft tissue swelling and ecchymosis surrounding the medial and lateral aspects of the incision. Calf is soft, no tenderness with palpation. Plantar flexion, dorsiflexion, EHL, FHL are intact. Sensory exam to light touch throughout the extremity is intact, dorsal pedis pulses 2+. - Labs CBC & Chem 7: 01/26/20 06:35 Labs: Abnormal Lab Results - Last 24 Hours (Table) 01/25/20 01/25/20 01/26/20 Range/Units 15:06 18:08 06:35 WBC 15.6 H (3.8-10.6) k/uL Neutrophils # 12.8 H (1.3-7.7) k/uL POC Glucose (mg/dL) 153 H 173 H (75-99) mg/dL 01/26/20 01/26/20 Range/Units 10:32 11:51 WBC (3.8-10.6) k/uL Neutrophils # (1.3-7.7) k/uL POC Glucose (mg/dL) 188 H 188 H (75-99) mg/dL Assessment and Plan Assessment: Postoperative day 1 status post left total knee arthroplasty Plan: Pain control, continue current medication. We'll not plan to increase her [place] for discharge seeing as she gets up from her primary care doctor. We'll consider adding tramadol at discharge, reassess tomorrow DVT prophylaxis, continue current medication Wound care instructions discussed Icing and elevating techniques discussed Encourage incentive spirometer Medical recommendations Discharge planning: With increase in pain, we will keep an additional night with plan for discharge home tomorrow Time with Patient: Less than 30
[2020-01-26] MEDS: PIOGLITAZONE 30 MG TAB PO SCH (14:05)
[2020-01-26] MEDS: NON FORMULARY DRUG (Dapagliflozin Propanediol [Farxiga] 10 MG Tablet) PO SCH (14:05)
[2020-01-26 16:16] LABS: Glucose,Whole Blood 172 mg/dL (75-99)
[2020-01-26] MEDS ORDERED: HYDROcodone/APAP 7.5-325MG 1 EACH TAB PO PRN (19:00)
[2020-01-26 20:30] LABS: Glucose,Whole Blood 253 mg/dL (75-99)
[2020-01-26] MEDS: SENNOSIDES-DOCUSATE SODIUM 1 EACH TAB PO SCH (20:43)
[2020-01-26] MEDS ORDERED: NON FORMULARY DRUG (Magnesium Citrate [Magnesium Citrate] 125 MG Capsule) PO SCH (21:00)
[2020-01-26] MEDS ORDERED: ATORVASTATIN 20 MG TAB PO SCH (21:00)
[2020-01-26] MEDS: HYDROcodone/APAP 7.5-325MG 1 EACH TAB PO PRN (22:43)
[2020-01-27] MEDS: LEVOTHYROXINE 75 MCG TAB PO SCH (04:50)
[2020-01-27] MEDS: ENOXAPARIN 30 MG/0.3 ML SYRINGE SQ SCH (04:50)
[2020-01-27] MEDS: HYDROcodone/APAP 7.5-325MG 1 EACH TAB PO PRN (04:50)
[2020-01-27 06:13] LABS: HCT 34.7 % (34.0-46.0); HGB 10.9 gm/dL (11.4-16.0); MCH 27.7 pg (25.0-35.0); MCHC 31.4 g/dL (31.0-37.0); MCV 88.3 fL (80.0-100.0); Mean Platelet Volume 6.9; Platelet Count 384 k/uL (150-450); RBC 3.93 m/uL (3.80-5.40); RDW 14.1 % (11.5-15.5); WBC 13.5 k/uL (3.8-10.6)
[2020-01-27 06:46] LABS: Glucose,Whole Blood 156 mg/dL (75-99)
[2020-01-27] MEDS: PANTOPRAZOLE 40 MG TABLET PO SCH (06:58)
[2020-01-27] MEDS: LACTATED RINGERS 1,000 ML IV SCH ×2 (07:00)
[2020-01-27] MEDS: NON FORMULARY DRUG (Dapagliflozin Propanediol [Farxiga] 10 MG Tablet) PO SCH (07:01)
[2020-01-27 07:24] VITALS: BP 106/58; PULSE 88; RESP 20; TEMP 98.3
--- NOTE | 2020-01-27 08:00 | P.PN ---
Subjective Principal diagnosis: Postop day #2 for arthroplasty. The patient is doing quite well. Pain is very well controlled this time. No voiding difficulty. The patient is tolerating diet. No significant voiding symptomatology. No nausea, vomiting or diarrhea. Anticipate discharge later today. Objective - Vital Signs Vital signs: Vital Signs Temp 98.3 F 01/27/20 07:17 Pulse 88 01/27/20 07:17 Resp 20 01/27/20 07:17 BP 106/58 01/27/20 07:17 Pulse Ox 94 L 01/27/20 07:17 Intake & Output 01/26/20 01/27/20 01/27/20 18:59 06:59 18:59 Other: Voiding Method Toilet # Voids 2 1 - Constitutional General appearance: Present: obese - EENT Eyes: Absent: abnormal pupil - Neck Neck: Absent: lymphadenopathy - Respiratory Respiratory: bilateral: CTA - Cardiovascular Rhythm: regular Heart sounds: normal: S1, S2 Abnormal Heart Sounds: Absent: S3 Gallop - Gastrointestinal General gastrointestinal: Present: soft. Absent: tenderness - Integumentary Integumentary: Absent: cellulitis - Labs CBC & Chem 7: 01/27/20 05:41 Labs: Abnormal Lab Results - Last 24 Hours (Table) 01/26/20 01/26/20 01/26/20 Range/Units 10:32 11:51 16:12 WBC (3.8-10.6) k/uL Hgb (11.4-16.0) gm/dL POC Glucose (mg/dL) 188 H 188 H 172 H (75-99) mg/dL 01/26/20 01/27/20 01/27/20 Range/Units 20:28 05:41 06:45 WBC 13.5 H (3.8-10.6) k/uL Hgb 10.9 L (11.4-16.0) gm/dL POC Glucose (mg/dL) 253 H 156 H (75-99) mg/dL Assessment and Plan (1) History of total knee arthroplasty Current Visit: Yes Status: Acute Code(s): Z96.659 - PRESENCE OF UNSPECIFIED ARTIFICIAL KNEE JOINT SNOMED Code(s): 3476849486270 (2) Hypertension Current Visit: Yes Status: Acute Code(s): I10 - ESSENTIAL (PRIMARY) HYPERTENSION SNOMED Code(s): 93161582 (3) Diabetes Current Visit: Yes Status: Acute Code(s): E11.9 - TYPE 2 DIABETES MELLITUS WITHOUT COMPLICATIONS SNOMED Code(s): 16866172 Plan: Reconcile home medications. Pain control postoperatively will be controlled by orthopedics. Anticipate discharge later today. Follow-up in 1-2 weeks
[2020-01-27] MEDS ORDERED: NON FORMULARY DRUG (Dulaglutide [Trulicity] 1.5 MG/0.5 ML Pen.Injctr) SQ SCH (08:10)
[2020-01-27] MEDS: GABAPENTIN 300 MG CAP PO SCH (08:45)
[2020-01-27] MEDS: CHOLECALCIFEROL 1,000 UNIT TAB PO SCH (08:45)
[2020-01-27] MEDS: MULTIVITAMINS, THERA 1 EACH TAB PO SCH (08:45)
[2020-01-27] MEDS: FENOFIBRATE 160 MG TAB PO SCH (08:45)
[2020-01-27] MEDS: metFORMIN 500 MG TAB PO SCH (08:45)
[2020-01-27] MEDS: PIOGLITAZONE 30 MG TAB PO SCH ×2 (08:47→10:11)
[2020-01-27 10:07] LABS: African American GFR (CKD) 76.1 (60.0-200.0); Albumin 3.4 g/dL (3.80-4.90); Albumin/Globulin Ratio 1.7 (1.60-3.17); Anion Gap 7.1 mmol/L (4.00-12.00); BUN/Creat Ratio 24.44 Ratio (12.00-20.00); Calcium 9.2 mg/dL (8.7-10.3); Carbon Dioxide 26.9 mmol/L (21.6-31.8); Non-African American GFR(CKD) 65.7 (60.0-200.0); Potassium 4.2 mmol/L (3.5-5.5); Total Bilirubin 0.5 mg/dL (0.3-1.2); Total Protein 5.4 g/dL (6.2-8.2)
--- NOTE | 2020-01-27 10:35 | P.PN ---
Subjective Progress Note Date: 01/27/20 Principal diagnosis: Status post left total knee arthroplasty Patient evaluated at bedside, she is resting in her hospital bed. Currently denies any headaches, lightheadedness, chest pain, shortness of breath, nausea or vomiting. Objective - Vital Signs Vital signs: Vital Signs Temp 98.3 F 01/27/20 07:17 Pulse 88 01/27/20 07:17 Resp 20 01/27/20 07:17 BP 106/58 01/27/20 07:17 Pulse Ox 94 L 01/27/20 07:17 Intake & Output 01/26/20 01/27/20 01/27/20 18:59 06:59 18:59 Other: Voiding Method Toilet # Voids 2 1 1 - Exam Left lower extremity: Incision is clean, dry, and intact. The foam dressing is in good condition. There is minimal soft tissue swelling and ecchymosis surrounding the medial and lateral aspects of the incision. Calf is soft, no tenderness with palpation. Plantar flexion, dorsiflexion, EHL, FHL are intact. Sensory exam to light touch throughout the extremity is intact, dorsal pedis pulses 2+. - Labs CBC & Chem 7: 01/27/20 05:41 01/27/20 05:41 Labs: Abnormal Lab Results - Last 24 Hours (Table) 01/26/20 01/26/20 01/26/20 Range/Units 10:32 11:51 16:12 WBC (3.8-10.6) k/uL Hgb (11.4-16.0) gm/dL BUN/Creatinine Ratio (12.00-20.00) Ratio Glucose (70-110) mg/dL POC Glucose (mg/dL) 188 H 188 H 172 H (75-99) mg/dL Total Protein (6.2-8.2) g/dL Albumin (3.80-4.90) g/dL 01/26/20 01/27/20 01/27/20 Range/Units 20:28 05:41 05:41 WBC 13.5 H (3.8-10.6) k/uL Hgb 10.9 L (11.4-16.0) gm/dL BUN/Creatinine Ratio 24.44 H (12.00-20.00) Ratio Glucose 159 H (70-110) mg/dL POC Glucose (mg/dL) 253 H (75-99) mg/dL Total Protein 5.4 L (6.2-8.2) g/dL Albumin 3.40 L (3.80-4.90) g/dL 01/27/20 Range/Units 06:45 WBC (3.8-10.6) k/uL Hgb (11.4-16.0) gm/dL BUN/Creatinine Ratio (12.00-20.00) Ratio Glucose (70-110) mg/dL POC Glucose (mg/dL) 156 H (75-99) mg/dL Total Protein (6.2-8.2) g/dL Albumin (3.80-4.90) g/dL Assessment and Plan Assessment: Postoperative day 1 status post left total knee arthroplasty Plan: Pain control, did adjust her oral medication. We will try oxycodone 5 mg10 mg to 6 hours DVT prophylaxis, aspirin 81 mg twice a day for a month Wound care instructions discussed Icing and elevating techniques discussed Encourage incentive spirometer Medical recommendations Discharge planning: Plan for discharge home today Time with Patient: Less than 30
--- NOTE | 2020-01-27 10:38 | P.DS ---
Providers Date of admission: 01/25/2020 Expected date of discharge: 01/27/20 Attending physician: Ranjit Steel Consults: 01/25/20 14:35 Consult Physician Routine Consulting Provider: Gurpreet Cuba Reason/Comments: Medical management Do you want consulting provider notified?: Yes Primary care physician: Gurpreet Cuba Hospital Course: Date of admission: 01/25/2020 Date of discharge: 01/27/2020 Admission diagnosis: Status post left total knee arthroplasty Discharge diagnosis: Same Attending physician: Dr. Steel Surgical procedures: Left total knee arthroplasty Brief history: Patient is a 69-year-old female with a history of progressive primary left knee osteoarthritis. At this point patient has failed conservative treatment measures and has opted to proceed with a elective left total knee arthroplasty. Hospital course: Details of patient's surgery can be found in operative report. Patient tolerated the procedure well and was subsequently transported to orthopedic floor. Patient's orthopeidc and medical care was provided daily. Patient had daily laboratory tests performed for evaluation of overall blood counts. Patient had daily physical therapy to include strengthening range of motion as well as education with walker ambulation. Patient was treated with Lovenox for their postoperative DVT prophylaxis during their inpatient stay. Patient was noted to have a relatively uneventful postoperative course. Patient reported satisfactory pain control with oral pain medications by postoperative day 0. Patient showed satisfactory progress with physical therapy. Patient moved steadily through the program and had no difficulty meeting the goals by postoperative day 2. Given patient's otherwise satisfactory course and having met physical therapy goals, plan is to discharge patient home on postoperative day 2. Discharge condition/disposition: Patient will be discharged home in stable condition. Discharge medications: Instructions are given on resumption of patient's normal daily medications per primary care recommendation, in addition patient will be prescribed oxycodone 5 mg, aspirin 81 mg. Discharge instructions: 1. Wound care and infection precautions, keep incision dry and covered while showering, no lotions, creams, moisturizers. No soaking, tubs, pools, hottubs. Do not scrub over the incision. 2. Weight-bear as tolerated with walker / cane until follow-up. 3. Ice and elevate when necessary. Do not exceed 20 minutes per hour with ice pack. 4. Utilize compression sleeve until seen at first follow up appointment. 5. Visiting nursing care. 6. Home physical therapy including home CPM. 7. Pain meds and anticoagulants per prescription. 8. Pain medication has potential to cause constipation. Increase oral fluid and fiber intake. Contact primary care provider if you have not had a bowel movement within 48 hours after discharge 9. No anti-inflammatory medication until discussed at first post operative visit, this including Motrin, Aleve, Mobic, Diclofenac 10. Follow up in office at 2 weeks postop with Emmanuel Singletary PA-C 11. Follow up with your primary care doctor 7-10 days after discharge. 12. Contact [facility] with any questions, . Procedures: Left total knee arthroplasty Patient Condition at Discharge: Good Plan - Discharge Summary Discharge Rx Participant: No New Discharge Prescriptions: New Aspirin [Adult Low Dose Aspirin EC] 81 mg PO BID #60 tablet. oxyCODONE HCL [OxyIR] 5 - 10 mg PO Q6H PRN 7 Days #56 tab PRN Reason: Pain Discontinued Aspirin [Adult Low Dose Aspirin EC] 81 mg PO DAILY No Action Levothyroxine Sodium [Synthroid] 75 mcg PO DAILY Enalapril Maleate [Vasotec] 10 mg PO DAILY Multivitamins, Thera [Multivitamin (formulary)] 1 tab PO DAILY Cholecalciferol [Vitamin D3 (25 Mcg = 1000 Iu)] 1,000 unit PO DAILY Ibuprofen [Motrin] 800 mg PO BID HYDROcodone/APAP 10-325MG [[place] 10-325] 1 tab PO QID Gabapentin [Neurontin] 300 mg PO TID Albuterol Sulfate [Proair Hfa] 2 puff INHALATION DIRECTED PRN PRN Reason: Shortness Of Breath Dulaglutide [Trulicity] 1.5 mg SQ WE Magnesium Citrate 250 mg PO HS Fenofibrate Nanocrystallized [Fenofibrate] 145 mg PO DAILY Dapagliflozin Propanediol [Farxiga] 10 mg PO DAILY Pioglitazone [Actos] 30 mg PO DAILY metFORMIN HCL 1,000 mg PO BID Atorvastatin [Lipitor] 20 mg PO HS Omeprazole 40 mg PO DAILY diphenhydrAMINE HCL [Benadryl] 25 mg PO DAILY PRN PRN Reason: ALLERGIES,SINUS Discharge Medication List Albuterol Sulfate [Proair Hfa] 2 puff INHALATION DIRECTED PRN 05/24/16 [History] Cholecalciferol [Vitamin D3 (25 Mcg = 1000 Iu)] 1,000 unit PO DAILY 05/24/16 [History] Enalapril Maleate [Vasotec] 10 mg PO DAILY 05/24/16 [History] Gabapentin [Neurontin] 300 mg PO TID 05/24/16 [History] HYDROcodone/APAP 10-325MG [[place] 10-325] 1 tab PO QID 05/24/16 [History] Ibuprofen [Motrin] 800 mg PO BID 05/24/16 [History] Levothyroxine Sodium [Synthroid] 75 mcg PO DAILY 05/24/16 [History] Multivitamins, Thera [Multivitamin (formulary)] 1 tab PO DAILY 05/24/16 [History] Dapagliflozin Propanediol [Farxiga] 10 mg PO DAILY 07/02/18 [History] Dulaglutide [Trulicity] 1.5 mg SQ WE 07/02/18 [History] Fenofibrate Nanocrystallized [Fenofibrate] 145 mg PO DAILY 07/02/18 [History] Magnesium Citrate 250 mg PO HS 07/02/18 [History] Pioglitazone [Actos] 30 mg PO DAILY 07/02/18 [History] metFORMIN HCL 1,000 mg PO BID 07/02/18 [History] Atorvastatin [Lipitor] 20 mg PO HS 04/08/19 [History] Omeprazole 40 mg PO DAILY 01/22/20 [History] diphenhydrAMINE HCL [Benadryl] 25 mg PO DAILY PRN 01/22/20 [History] Aspirin [Adult Low Dose Aspirin EC] 81 mg PO BID #60 tablet.dr 01/27/20 [Rx] oxyCODONE HCL [OxyIR] 5 - 10 mg PO Q6H PRN 7 Days #56 tab 01/27/20 [Rx] Follow up Appointment(s)/Referral(s): [facility] [NON-STAFF] - As Needed (Continuous Passive Motion knee machine) Gurpreet Cuba MD [Primary Care Provider] - 1 Week [facility], [NON-STAFF] - As Needed Hector Singletary PAC [PHYSICIAN CARE CLINICIAN] - 02/10/20 2:30 pm [facility] [NON-STAFF] - As Needed (Call to see if they have shower chairs.) Patient Instructions/Handouts: *Surgery [facility] - On-Q Pain Pump Discharge Instructions, Knee Replacement (DC) Activity/Diet/Wound Care/Special Instructions: Orthopedic Discharge Instructions: 1. Please removed from dressing on 02/04/2020. Okay to shower over incision once bandages removed. 2. Weight-bear as tolerated with walker / cane until follow-up. 3. Ice and elevate when necessary. Do not exceed 20 minutes per hour with ice pack. 4. Utilize compression sleeve until seen at first follow up appointment. 5. Pain meds and anticoagulants per prescription. 6. Pain medication has potential to cause constipation. Increase oral fluid and fiber intake. Contact primary care provider if you have not had a bowel movement within 48 hours after discharge. 7. No anti-inflammatory medication until discussed at first post operative visit, this including Motrin, Aleve, Mobic, Diclofenac. 8. Follow up in office at 2 weeks postop with Emmanuel Singletary PA-C 9. Follow up with your primary care doctor 7-10 days after discharge. 10. Contact [facility] with any questions, . Discharge Disposition: HOME WITH HOME HEALTH SERVICES
[2020-01-27 12:06] LABS: Glucose,Whole Blood 218 mg/dL (75-99)
== END 2020-01-27 13:19 | disposition home health service (06) | DRG 470 ==
LOC: OR 10:37 → 4SSUR 14:34 → OR 01-26 13:05 → 4SSUR 01-26 13:05
PROVIDERS: ADMIT Orthopaedic Surgery; ATTEND Orthopaedic Surgery
PROC: 0SRD0J9 Replacement of Left Knee Joint with Synthetic Substitute, Cemented, Open Approach (ICD-10-PCS; principal; 2020-01-25 12:30)
DX: M17.12 Unilateral primary osteoarthritis, left knee (principal); E03.9 Hypothyroidism, unspecified; E11.42 Type 2 diabetes mellitus with diabetic polyneuropathy; E78.5 Hyperlipidemia, unspecified; I10 Essential (primary) hypertension; J45.909 Unspecified asthma, uncomplicated; G43.909 Migraine, unspecified, not intractable, without status migrainosus; K21.9 Gastro-esophageal reflux disease without esophagitis; E66.9 Obesity, unspecified; Z68.37 Body mass index [BMI] 37.0-37.9, adult; Z79.82 Long term (current) use of aspirin; Z79.84 Long term (current) use of oral hypoglycemic drugs; Z79.890 Hormone replacement therapy; Z79.899 Other long term (current) drug therapy; Z85.41 Personal history of malignant neoplasm of cervix uteri; Z90.710 Acquired absence of both cervix and uterus; Z98.49 Cataract extraction status, unspecified eye; Z90.49 Acquired absence of other specified parts of digestive tract; Z87.19 Personal history of other diseases of the digestive system; Z98.890 Other specified postprocedural states; Z86.718 Personal history of other venous thrombosis and embolism; Z88.1 Allergy status to other antibiotic agents; Z88.2 Allergy status to sulfonamides; Z88.8 Allergy status to other drugs, medicaments and biological substances; Z82.49 Family history of ischemic heart disease and other diseases of the circulatory system; Z82.61 Family history of arthritis; Z80.9 Family history of malignant neoplasm, unspecified; Z80.52 Family history of malignant neoplasm of bladder; Z83.79 Family history of other diseases of the digestive system; Z83.3 Family history of diabetes mellitus; Z84.89 Family history of other specified conditions
CPT/HCPCS: 64448; 76942; 80053; 85025; 85027; 88300

== ENCOUNTER → 2024-02-17 | Outpatient (CLI) | payer MEDICARE, OTHER ==
--- NOTE | 2024-02-17 13:48 | XR ---
EXAMINATION TYPE: XR knee complete RT DATE OF EXAM: 02/17/2024 COMPARISON: NONE CLINICAL INDICATION: Female, 73 years old with history of R52 pain; TECHNIQUE: 4 views are submitted. FINDINGS: Diffuse demineralization. Moderate to severe tricompartment joint space arthropathy with marginal spu rring. No erosive changes. Posterior soft tissue ossification popliteal fossa. Moderate-sized patellar bursal fluid collection. IMPRESSION: 1. Moderate to severe osteoarthritis. 2. Moderate-sized bursal fluid collection. [facility], , 02/17/2024 1:45 PM
== END | disposition home or self-care (01) ==
LOC: RADXRMAIN 13:17
PROVIDERS: ATTEND Family Medicine
DX: M17.11 Unilateral primary osteoarthritis, right knee (principal)